=== PATIENT | male | born 1965 | race Caucasian/White ===

== ENCOUNTER 2024-07-27 15:31 | Outpatient (CLI) | payer SELFPAY ==
--- NOTE | 2024-07-27 15:41 | XR_ITS ---
FINAL REPORT CLINICAL HISTORY: CELLULITIS OF TOE, 4th LEFT FOOT COMPARISON: None FINDINGS: Two views of the left foot were obtained. There is no acute fracture or dislocation. The joint spaces are intact. There is soft tissue edema of the 4th digit. IMPRESSION: Fourth digit soft tissue edema without acute process. Reviewed, Interpreted and Dictated by Harry Escobar MD Transcribed by Eva Vail Authenticated and [facility]
== END 2024-07-27 23:59 | disposition home or self-care (01) ==
LOC: RAD 15:36
PROVIDERS: PCP Internal Medicine Adolescent Medicine; Visit Provider Internal Medicine Adolescent Medicine
DX: L03.032 Cellulitis of left toe (principal)
CPT/HCPCS: 73620